=== PATIENT | male | born 1985 | race Caucasian/White ===

== ENCOUNTER 2019-05-08 17:05 | Emergency (ER) | payer BC ==
--- NOTE | 2019-05-08 17:38 | EDM.PDOC ---
ED HPI GENERAL MEDICAL PROBLEM - General Chief Complaint: Upper Extremity Injury/Pain Stated Complaint: POSS FROSTBITE Time Seen by Provider: 05/08/19 17:18 Source of Information: Reports: Patient History Limitations: Reports: No Limitations - History of Present Illness INITIAL COMMENTS - FREE TEXT/NARRATIVE: The patient presents with frostbit to the right hand. He says this happened about a day ago. He was waiting for his coworkers to come out of the bar and he fell asleep outside with some wet gloves on. He now has some purple to black discoloration to the left 5th digit with a large blister. He also has some erythema to that finger and a couple other fingers on that hand. He is right handed. He is not sure of his last tetanus. Onset: Gradual Duration: Hour(s): Location: Reports: Upper Extremity, Right (hand) Quality: Reports: Sharp Severity: Moderate Improves with: Reports: None Worsens with: Reports: None Associated Symptoms: Reports: No Other Symptoms Review of Systems - Review of Systems Review Of Systems: See Below Constitutional: Reports: No Symptoms Eyes: Reports: No Symptoms Ears: Reports: No Symptoms Nose: Reports: No Symptoms Mouth/Throat: Reports: No Symptoms Respiratory: Reports: No Symptoms Cardiovascular: Reports: No Symptoms GI/Abdominal: Reports: No Symptoms Genitourinary: Reports: No Symptoms Musculoskeletal: Reports: Other (Pain and swelling to the 5th digit) ED EXAM, GENERAL - Physical Exam Exam: See Below Exam Limited By: No Limitations General Appearance: Alert, No Apparent Distress Ears: Normal External Exam Nose: Normal Inspection Head: Atraumatic, Normocephalic Neck: Normal Inspection Respiratory/Chest: No Respiratory Distress Extremities: Other (Erythema to the distal 3rd and 4th digits of the right hand. The 5th digit of the right hand has black ) Course - Vital Signs Last Recorded V/S: Last Vital Signs Temp 98.8 F 05/08/19 17:22 Pulse 79 05/08/19 17:22 Resp 20 05/08/19 17:22 BP 116/72 05/08/19 17:22 Pulse Ox 94 L 05/08/19 17:22 - Orders/Labs/Meds Orders: Active Orders 24 hr Category Date Time Status Vaccines to be Administered [RC] PER UNIT ROUTINE Care 05/08/19 17:47 Active Meds: Medications Discontinued Medications Generic Name Dose Route Start Last Admin Trade Name Kaya PRN Reason Stop Dose Admin Diphtheria/Tetanus/Acell Pertussis 0.5 ml 05/08/19 17:47 Adacel IM 05/08/19 17:48 .ONCE ONE - Re-Assessments/Exams Free Text/Narrative Re-Assessment/Exam: 05/08/19 18:33 I called [facility] and talked to Dr Wheatley and he said the patient was outside the window for thrombolytics. He did recommend opening up the blister, dress the wound and get him on an aspirin daily. They can see the patient in follow up in 2 weeks. It may take months to know what will be saved. Departure - Departure Time of Disposition: 18:45 Disposition: Home, Self-Care 01 Condition: Good Clinical Impression: Frostbite Qualifiers: Encounter type: initial encounter Qualified Code(s): T33.90XA - Superficial frostbite of unspecified sites, initial encounter - Discharge Information *PRESCRIPTION DRUG MONITORING PROGRAM REVIEWED*: Not Applicable *COPY OF PRESCRIPTION DRUG MONITORING REPORT IN PATIENT ELSY: Not Applicable Referrals: PCP,None [Primary Care Provider] - Forms: ED Department Discharge Additional Instructions: Take 325mg of aspirin daily for a month. Protect your fingers from the cold. Let the shower water run over your finger and clean it daily and dress it after. Follow up with your doctor in 2 weeks or [facility] [place] can follow up with you here. Take tylenol for any pain. Sepsis Event Note - Evaluation Sepsis Screening Result: No Definite Risk - Focused Exam Vital Signs: Vital Signs Temp Pulse Resp BP Pulse Ox 05/08/19 17:22 98.8 F 79 20 116/72 94 L Date Exam was Performed: 05/08/19 Time Exam was Performed: 18:33 - My Orders Last 24 Hours: My Active Orders 05/08/19 17:47 Vaccines to be Administered [RC] PER UNIT ROUTINE - Assessment/Plan Last 24 Hours: My Active Orders 05/08/19 17:47 Vaccines to be Administered [RC] PER UNIT ROUTINE
[2019-05-08] MEDS ORDERED: Diphtheria,Pertussis(Acell),Tetanus Vaccine 0.5 ML Syringe IM ONE (17:47)
== END 2019-05-08 18:55 | disposition home or self-care (01) ==
LOC: JD.ED 17:05
DX: T33.531A Superficial frostbite of right finger(s), initial encounter (principal); Z23 Encounter for immunization; W19.XXXA Unspecified fall, initial encounter
CPT/HCPCS: 90471; 90715; 99282; 99283